=== PATIENT | female | born 1925 | race Caucasian/White ===

== ENCOUNTER → 2016-06-17 | Outpatient (CLI) | payer OTHER, BC ==
[~2016-06-17] MED LIST: ATEN50TA8 PO; CHOL1CAP57 PO; COEN1CAP28 PO; CPR500 PO; CYAN100T PO; LEVO25TA PO; LPT10 PO; NTRGSL/4 UT; OMEG10007 PO; POTA20TA16 PO; PRT/40 PO; XNX25 PO
== END | disposition home or self-care (01) ==
LOC: C.LAB 11:14
PROVIDERS: ATTEND Nurse Practitioner
DX: M15.9 Polyosteoarthritis, unspecified (principal); N18.3 Chronic kidney disease, stage 3 (moderate)

== ENCOUNTER → 2016-06-17 | Outpatient (CLI) | payer OTHER, BC ==
[2016-06-17 12:07] LABS: BASO % 0.3 %; BASO ABS # 0.02 K/uL (0-0.2); COMPLETE YES; EOS % 2.3 %; HEMATOCRIT 38.2 % (37-47); IG% 0.3 %; LYMPH % 33.4 %; LYMPH ABS # 2.63 K/uL (1.2-3.4); MEAN CELL VOLUME 88.8 fL (80-100); MEAN CORPUSCULAR HEMOGLOBIN 29.8 pg (25-34); MEAN CORPUSCULAR HGB CONC 33.5 g/dl (32-36); MEAN PLATELET VOLUME 10.3 fL (7.4-10.4); MONO % 5.3 %; NEUT % 58.4 %; PLATELET COUNT 167 K/uL (130-400); WHITE BLOOD COUNT 7.87 K/uL (4.8-10.8)
[2016-06-17 12:53] LABS: CHLORIDE 108 mmol/L (98-107); SODIUM 142 mmol/L (136-145)
[2016-06-17 13:07] LABS: BLOOD UREA NITROGEN 21 mg/dl (7-18); BUN/CREATININE RATIO 17.7 (10-20); CALCIUM 9.2 mg/dl (8.5-10.1); CARBON DIOXIDE 25 mmol/L (21-32); GLUCOSE 93 mg/dl (70-99)
== END | disposition home or self-care (01) ==
LOC: C.LAB 11:16
PROVIDERS: ATTEND Internal Medicine Nephrology
DX: N18.3 Chronic kidney disease, stage 3 (moderate) (principal)

== ENCOUNTER → 2016-07-08 | Outpatient (CLI) | payer OTHER, BC ==
--- NOTE | 2016-07-08 13:28 | DIAGNOSTIC IMAGING REPORT ---
CHEST 2 VIEWS ROUTINE CLINICAL HISTORY: Persistent cough COMPARISON STUDY: 01/18/2016 FINDINGS: The cardiac and mediastinal contours are normal. There is no evidence of focal pulmonary consolidation. There is no evidence of failure. No pleural effusions are visualized.[ There is a thoracolumbar scoliosis. IMPRESSION: No active disease in the chest. Electronically signed by: Frank La M.D. 07/08/2016 1:27 PM Dictated Date/Time: 07/08/2016 1:26 PM
== END | disposition home or self-care (01) ==
LOC: C.RAD 13:04
PROVIDERS: ATTEND Internal Medicine
DX: R05 Cough (principal)

== ENCOUNTER → 2016-08-21 | Outpatient (CLI) | payer OTHER, BC ==
[2016-08-21 18:40] LABS: BASO % 0.5 %; BASO ABS # 0.03 K/uL (0-0.2); COMPLETE YES; EOS % 3.7 %; HEMATOCRIT 37.5 % (37-47); IG% 0.2 %; LYMPH % 26.1 %; LYMPH ABS # 1.71 K/uL (1.2-3.4); MEAN CORPUSCULAR HEMOGLOBIN 29.8 pg (25-34); MEAN CORPUSCULAR HGB CONC 31.7 g/dl (32-36); MEAN PLATELET VOLUME 11.3 fL (7.4-10.4); NEUT % 64.5 %; PLATELET COUNT 132 K/uL (130-400); RED BLOOD COUNT 3.99 M/uL (4.2-5.4); WHITE BLOOD COUNT 6.54 K/uL (4.8-10.8)
[2016-08-21 18:51] LABS: URINE APPEARANCE CLEAR (CLEAR); URINE BILIRUBIN NEG (NEG); URINE COLOR YELLOW; URINE EPITHELIAL CELL AUTO >30 /lpf (0-5); URINE NITRITE POS (NEG); UROBILINOGEN NEG (NEG); ZZUR CULT IF INDIC CLEAN CATCH YES
[2016-08-21 18:55] LABS: MANUAL MICROSCOPIC REQUIRED? NO; REVIEW REQ? NO
== END ==
LOC: C.LABBFT 11:45
PROVIDERS: ATTEND Internal Medicine Nephrology
DX: N18.3 Chronic kidney disease, stage 3 (moderate) (principal); E78.00 Pure hypercholesterolemia, unspecified; R10.84 Generalized abdominal pain

== ENCOUNTER → 2016-08-28 | Outpatient (CLI) | payer OTHER, BC ==
--- NOTE | 2016-08-28 15:27 | DIAGNOSTIC IMAGING REPORT ---
CHEST CT WITHOUT CONTRAST CT DOSE: HISTORY: Follow-up pulmonary nodules. Short of breath. TECHNIQUE: Multiaxial CT images of the chest were performed without contrast. COMPARISON: Chest CT 02/16/2015. FINDINGS: The central airways are patent. No pleural effusions. No pneumothorax. Mild emphysema. No synovial change in the 9 mm irregular groundglass nodule within the left lower lobe on image 172. Stable subpleural subcentimeter nodular densities and calcified granulomas within the right lung apex. These are likely benign. No focal lung consolidations to suggest pneumonia. Poststernotomy changes. No acute fractures within the visualized osseous structures. There are coarse calcification within the right thyroid lobe which demonstrates a stable 1.6 cm nodule. No hilar lymphadenopathy. Single prominent left peritracheal lymph node measuring 1 cm. This is best seen on image 99. Normal caliber thoracic aorta. Small fat-containing right-sided Bochdalek hernia. IMPRESSION: 1. No change in size of the 9 mm irregular groundglass nodule within the left lower lobe. This favors a low-grade bronchogenic malignancy. 2. Mild emphysema. 3. A single prominent left peritracheal lymph node measuring 1 cm. Electronically signed by: Sd Valente M.D. 08/28/2016 3:26 PM Dictated Date/Time: 08/28/2016 3:19 PM
--- NOTE | 2016-08-28 15:35 | DIAGNOSTIC IMAGING REPORT ---
ABDOMEN AND PELVIS CT WITH ORAL CONTRAST CT DOSE: 979.54 mGy.cm HISTORY: Pain. Fistula. Colitis TECHNIQUE: Multiaxial CT images of the abdomen and pelvis were performed following the use of oral contrast. COMPARISON STUDY: 02/01/2016. FINDINGS: lung bases are clear. Liver is unremarkable and unchanged in configuration as is the spleen. Kidneys negative for hydronephrosis. 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 Upper abdominal bowel pattern is nonobstructive and unremarkable. The appendix is normal.. Evaluation of the pelvis again shows presence of a 2 cm left ovarian cyst. There is scattered sigmoid diverticuli without diverticulitis. Bladder is midline. The fistulous tract in terms of configuration is redemonstrated with a linear line of what appears to be fibrous type tissue and/or scar. No air containment is present. The PA and fistulous tract infiltrative change is diminished. Tract diameters also diminished. IMPRESSION: 1. Improved exam. 2. 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 3. The linear residual potentially represents simple postprocedural scar formation. 4. 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 5. All remaining components of the study are unremarkable. Electronically signed by: Salvador Sorto M.D. 08/28/2016 3:34 PM Dictated Date/Time: 08/28/2016 3:25 PM
== END | disposition home or self-care (01) ==
LOC: C.CTS 14:20
PROVIDERS: ATTEND Nurse Practitioner
DX: R10.84 Generalized abdominal pain (principal); R06.09 Other forms of dyspnea; K60.3 Anal fistula; I71.4 Abdominal aortic aneurysm, without rupture; R91.1 Solitary pulmonary nodule; R93.8 Abnormal findings on diagnostic imaging of other specified body structures

== ENCOUNTER → 2016-11-22 | Outpatient (CLI) | payer OTHER, BC ==
[~2016-11-22] MED LIST changes: +ASPI325T39 PO; +CRD2 PO; +FLUT1INH7 INH; +FOLI800T PO; +LEVA45AE INH; +PANT40TA2 PO; +PLV75 PO; -PRT/40 PO; +RANI150T2 PO; +TPRSR/50 PO; +VALS-58 PO
[2016-11-22 17:42] LABS: URINE APPEARANCE CLEAR (CLEAR); URINE BILIRUBIN NEG (NEG); URINE COLOR YELLOW; URINE EPITHELIAL CELL AUTO >30 /lpf (0-5); URINE NITRITE POS (NEG); URINE SPECIFIC GRAVITY 1.021 (1.000-1.030); UROBILINOGEN NEG (NEG); ZZUR CULT IF INDIC CLEAN CATCH YES
[2016-11-22 17:49] LABS: MANUAL MICROSCOPIC REQUIRED? NO; REVIEW REQ? NO
[2016-11-22 18:11] LABS: URINE PROTIEN/CREAT RATIO 0.2 (0-0.2); URINE TOTAL PROTEIN 20.6 mg/dl (0-11.9)
[2016-11-22 19:08] LABS: BLOOD UREA NITROGEN 26 mg/dl (7-18); CALCIUM 9.3 mg/dl (8.5-10.1); CARBON DIOXIDE 20 mmol/L (21-32); CHLORIDE 112 mmol/L (98-107); GLUCOSE 106 mg/dl (70-99); MAGNESIUM 2.2 mg/dl (1.8-2.4); PHOSPHORUS 3.1 mg/dl (2.5-4.9); POTASSIUM 4.1 mmol/L (3.5-5.1); SODIUM 144 mmol/L (136-145)
== END | disposition home or self-care (01) ==
LOC: C.LABBFT 11:34
PROVIDERS: ATTEND Internal Medicine Nephrology
DX: N18.3 Chronic kidney disease, stage 3 (moderate) (principal)

== ENCOUNTER → 2017-01-04 | Outpatient (CLI) | payer OTHER, BC ==
[~2017-01-04] MED LIST changes: -ASPI325T39 PO; -CRD2 PO; -FLUT1INH7 INH; -FOLI800T PO; -LEVA45AE INH; -PANT40TA2 PO; -PLV75 PO; +PRT/40 PO; -RANI150T2 PO; -TPRSR/50 PO; -VALS-58 PO
--- NOTE | 2017-01-04 17:01 | DIAGNOSTIC IMAGING REPORT ---
CHEST 2 VIEWS ROUTINE CLINICAL HISTORY: Shortness of breath. COMPARISON STUDY: Chest radiograph July 08, [address] August 28, 2016. FINDINGS: No pneumothorax or pleural effusion is present. Linear left basilar opacity is suggestive of atelectasis. Cardiomegaly is unchanged. There is no evidence of pulmonary edema. No consolidation is identified. IMPRESSION: No acute cardiopulmonary findings. Electronically signed by: Bladimir Azar M.D. 01/04/2017 5:00 PM Dictated Date/Time: 01/04/2017 4:46 PM
== END | disposition home or self-care (01) ==
LOC: C.RAD1850 16:14
PROVIDERS: ATTEND Nurse Practitioner
DX: R06.02 Shortness of breath (principal)

== ENCOUNTER → 2017-01-13 | Outpatient (CLI) | payer OTHER, BC ==
[2017-01-13 12:37] LABS: URINE APPEARANCE CLEAR (CLEAR); URINE BILIRUBIN NEG (NEG); URINE COLOR YELLOW; URINE EPITHELIAL CELL AUTO >30 /lpf (0-5); URINE NITRITE POS (NEG); URINE SPECIFIC GRAVITY 1.018 (1.000-1.030); UROBILINOGEN NEG (NEG); ZZUR CULT IF INDIC CLEAN CATCH YES
[2017-01-13 12:43] LABS: MANUAL MICROSCOPIC REQUIRED? NO; REVIEW REQ? NO
== END | disposition home or self-care (01) ==
LOC: C.LAB 10:56
PROVIDERS: ATTEND Nurse Practitioner
DX: R39.9 Unspecified symptoms and signs involving the genitourinary system (principal)

== ENCOUNTER → 2017-01-16 | Outpatient (CLI) | payer OTHER, BC ==
--- NOTE | 2017-01-16 12:54 | DIAGNOSTIC IMAGING REPORT ---
LEFT CLAVICULAR ULTRASOUND CLINICAL HISTORY: Left clavicle pain. Swelling. COMPARISON STUDY: Chest CT August 28, 2016. TECHNIQUE: Sonography of the left clavicular region was performed with comparison sonography of the right clavicular region. FINDINGS: No mass, fluid collection or other sonographic abnormality was identified within the region of the left clavicle. The adjacent soft tissues are unremarkable. IMPRESSION: No sonographic abnormality identified adjacent to the left clavicle. Electronically signed by: Bladimir Azar M.D. 01/16/2017 12:53 PM Dictated Date/Time: 01/16/2017 12:51 PM
== END | disposition home or self-care (01) ==
LOC: C.ULTR 12:05
PROVIDERS: ATTEND Physician Assistant Medical
DX: M89.8X1 Other specified disorders of bone, shoulder (principal); M79.89 Other specified soft tissue disorders

== ENCOUNTER → 2017-02-03 | Outpatient (CLI) | payer OTHER, BC ==
[2017-02-03 12:23] LABS: URINE APPEARANCE TURBID (CLEAR); URINE BILIRUBIN NEG (NEG); URINE COLOR YELLOW; URINE EPITHELIAL CELL AUTO >30 /lpf (0-5); URINE NITRITE NEG (NEG); URINE SPECIFIC GRAVITY 1.018 (1.000-1.030); UROBILINOGEN NEG (NEG)
[2017-02-03 12:31] LABS: MANUAL MICROSCOPIC REQUIRED? NO; REVIEW REQ? YES
== END | disposition home or self-care (01) ==
LOC: C.LAB 11:00
PROVIDERS: ATTEND Nurse Practitioner
DX: R39.9 Unspecified symptoms and signs involving the genitourinary system (principal)